=== PATIENT | female | born 1950 | race African-American/Black ===

== ENCOUNTER 2017-12-08 08:00 | Outpatient (CLI) | payer MEDICARE, OTHER | END 2017-12-08 23:59 | disposition home or self-care (01) | LOC: C/S 08:00 | DX: I69.911 Memory deficit following unspecified cerebrovascular disease (principal); G31.84 Mild cognitive impairment of uncertain or unknown etiology | CPT/HCPCS: 70450 ==

== ENCOUNTER → 2018-09-15 | Outpatient (CLI) | payer MEDICARE, OTHER | END | disposition home or self-care (01) | LOC: LAB 14:14 | DX: R05 Cough (principal) | CPT/HCPCS: 71046 ==